=== PATIENT | female | born 1945 | race Caucasian/White ===

== ENCOUNTER → 2016-07-23 | Outpatient (CLI) | payer OTHER | LOC: BMCIMAGING 12:50 | PROVIDERS: ATTEND Internal Medicine | DX: R55 Syncope and collapse (principal); K44.9 Diaphragmatic hernia without obstruction or gangrene ==

== ENCOUNTER → 2016-08-05 | Outpatient (CLI) | payer OTHER | LOC: BMCIMAGING 08:06 | PROVIDERS: ATTEND Internal Medicine Endocrinology, Diabetes & Metabolism | DX: E04.1 Nontoxic single thyroid nodule (principal) | CPT/HCPCS: 76536-PO ==

== ENCOUNTER → 2016-09-03 | Outpatient (CLI) | payer OTHER | LOC: BMCIMAGING 07:59 | PROVIDERS: ATTEND Internal Medicine | DX: Z12.31 Encounter for screening mammogram for malignant neoplasm of breast (principal) | CPT/HCPCS: G0202 ==

== ENCOUNTER → 2016-09-29 | Outpatient (CLI) | payer OTHER | LOC: BMCIMAGING 11:20 | PROVIDERS: ATTEND Internal Medicine | DX: E21.3 Hyperparathyroidism, unspecified (principal); I25.10 Atherosclerotic heart disease of native coronary artery without angina pectoris; M85.80 Other specified disorders of bone density and structure, unspecified site ==

== ENCOUNTER 2017-01-14 06:19 | Observation (INO) | payer OTHER ==
[2017-01-14] MEDS ORDERED: KETOROLAC 15 MG/1 ML SDV IVP ONE (06:50)
--- NOTE | 2017-01-14 06:52 | EDPHY ---
H & P Stated Complaint: RUQ ABD PAIN SINCE 2 A.M. , NO N,V,D, Source: Patient Exam Limitations: No limitations - Personal History Current Tetanus/Diphtheria Vaccine: Yes Current Tetanus Diphtheria and Acellular Pertussis (TDAP): Yes - Medical/Surgical History Hx Asthma: No Hx Chronic Respiratory Disease: No Hx Diabetes: No Hx Cardiac Disease: No Hx Renal Disease: No Hx Cirrhosis: No Hx Alcoholism: No Hx HIV/AIDS: No Hx Splenectomy or Spleen Trauma: No Other PMH: pmh- hypothyroid, high cholesterol, htn. psh- R knee, tonsilectomy - Social History Smoking Status: Never smoked HPI/ROS: HPI The patient presents with right upper quadrant abdominal pain which has been present since about 1:45 a.m. this morning and awoke her from sleep. The pain is been constant ever since and is described as a soreness. When she pushes in the area it hurts. She has had no prior history of similar pain. This is moderate in severity. It is not associated with any nausea, vomiting, fever, dizziness or diaphoresis. She does not any chest pain. REVIEW OF SYSTEMS Constitutional: No fever, no chills. Eyes: No discharge. ENT: No sore throat. Cardiovascular: No chest pain, no palpitations. Respiratory: No cough, no shortness of breath. Gastrointestinal: Positive for abdominal pain, no vomiting. Genitourinary: No hematuria. Musculoskeletal: No back pain. Skin: No rashes. Neurological: No headache. PMHx: Hypothyroidism, hypercholesterolemia, hypertension, no prior history of abdominal operation Soc Hx: non smoker PHYSICAL General Appearance: Alert, no distress Eyes: Pupils equal and round no pallor or injection ENT, Mouth: Mucous membranes moist Respiratory: There are no retractions, lungs are clear to auscultation Cardiovascular: Regular rate and rhythm Gastrointestinal: Abdomen is soft with tenderness present in the right upper quadrant which is mild, no masses, bowel sounds normal Neurological: A&O, moves all extremities Skin: Warm and dry, no rashes Musculoskeletal: Neck is supple non tender Extremities: symmetrical, full range of motion Psychiatric: Patient is oriented X 3, there is no agitation (Riguzzi,Jess) Constitutional: Initial Vital Signs Temperature (C) 36.8 C 01/14/17 06:24 Heart Rate 63 01/14/17 06:24 Respiratory Rate 18 01/14/17 06:24 Blood Pressure 126/63 H 01/14/17 06:24 O2 Sat (%) 95 01/14/17 06:24 O2 Delivery Mode Room Air Allergies/Adverse Reactions: amoxicillin [Amoxicillin] Allergy (Verified 01/14/17 06:27) Rash blue dye [Blue Dye] Allergy (Verified 01/14/17 06:27) TACHYCARDIA, PALPITATIONS diphenhydramine HCl [From Benadryl] Allergy (Verified 01/14/17 06:27) Other-Enter Comments Home Medications: Medication Instructions Recorded Levothyroxine [Synthroid 75 mcg 05/10/11 (RX)] Atorvastatin Calcium [Lipitor 20 10 mg PO DAILY 01/14/17 mg (*)] Candesartan/Hydrochlorothiazid 1 each PO 01/14/17 [Candesartan-Hctz 16-12.5 mg Tb] Medical Decision Making ED Course/Re-evaluation: 730: The patient is signed out to me at change of shift by Dr. saha. 735: I discussed the case with Dr. Cornelius from Radiology. He reports that the patient has gallstones in the neck of the gallbladder. There is a dilated common bile duct 1 cm. There is sludge in the common bile duct. No wall thickening. I reviewed the patient's laboratory studies. Patient's white count is 7. LFTs are normal. Lipase is 170. I went and re-evaluated the patient. The patient still complaining of right upper quadrant tenderness palpation. On exam she appears well in no acute distress. She has no respiratory distress with clear breath sounds bilaterally. I see no rash. Patient has right upper quadrant tenderness to palpation with no rebound or guarding. I discussed all results with the patient and answered her questions. I feel the patient needs further evaluation based on her imaging and presentation. She agrees with admission. Hospitalist was paged. I discussed case with the hospitalist service. I also discussed the case with Dr. Campbell from surgery. Dr. Campbell will accept the patient to his service. He will come to the emergency department to evaluate the patient. Admission orders were placed. The patient is aware. (Florina Carranza) Differential Diagnosis: This is a 71-year-old female with hypertension, hypothyroidism who presents from home with about 5 hours of right upper quadrant abdominal pain which started spontaneously with no associated features. On exam, she is tender in the right upper quadrant without rebound or guarding. There is no rib tenderness. Differential diagnosis includes cholelithiasis, cholecystitis, less likely pleurisy, less likely varicella zoster. In the emergency department, basic lab testing was ordered, but upper quadrant ultrasound ordered. The patient was given Toradol for pain. At change of shift at approximately 7:00 a.m., the case is signed out to the oncoming provider Dr. Carranza pending reassessment and follow up on the patient' s studies. (Jess Saha) - Data Points Laboratory Results: Laboratory Results 01/14/17 06:47 01/14/17 06:47 01/14/17 01/14/17 06:47 06:47 WBC 7.83 10^3/uL 10^3/uL (3.80-9.50) RBC 4.74 10^6/uL 10^6/uL (4.18-5.33) Hgb 14.7 g/dL g/dL (12.6-16.3) Hct 40.9 % % (38.0-47.0) MCV 86.3 fL fL (81.5-99.8) MCH 31.0 pg pg (27.9-34.1) MCHC 35.9 g/dL g/dL (32.4-36.7) RDW 12.8 % % (11.5-15.2) Plt Count 242 10^3/uL 10^3/uL (150-400) MPV 8.4 fL L fL (8.7-11.7) Neut % (Auto) 80.4 % H % (39.3-74.2) Lymph % (Auto) 13.0 % L % (15.0-45.0) [place] % (Auto) 5.6 % % (4.5-13.0) Eos % (Auto) 0.3 % L % (0.6-7.6) Baso % (Auto) 0.4 % % (0.3-1.7) Nucleat RBC Rel Count 0.0 % % (0.0-0.2) Absolute Neuts (auto) 6.30 10^3/uL 10^3/uL (1.70-6.50) Absolute Lymphs (auto) 1.02 10^3/uL 10^3/uL (1.00-3.00) Absolute Monos (auto) 0.44 10^3/uL 10^3/uL (0.30-0.80) Absolute Eos (auto) 0.02 10^3/uL L 10^3/uL (0.03-0.40) Absolute Basos (auto) 0.03 10^3/uL 10^3/uL (0.02-0.10) Absolute Nucleated RBC 0.00 10^3/uL 10^3/uL (0-0.01) Immature Gran % 0.3 % % (0.0-1.1) Immature Gran # 0.02 10^3/uL 10^3/uL (0.00-0.10) Sodium 141 mEq/L mEq/L (134-144) Potassium 3.4 mEq/L L mEq/L (3.5-5.2) Chloride 103 mEq/L mEq/L (97-110) Carbon Dioxide 26 mEq/l mEq/l (22-31) Anion Gap 12 mEq/L mEq/L (8-16) BUN 17 mg/dL mg/dL (7-23) Creatinine 0.9 mg/dL mg/dL (0.6-1.0) Estimated GFR > 60 Glucose 118 mg/dL H mg/dL (70-100) Calcium 9.5 mg/dL mg/dL (8.5-10.4) Total Bilirubin 1.0 mg/dL mg/dL (0.1-1.4) Conjugated Bilirubin 0.0 mg/dL mg/dL (0.0-0.5) Unconjugated Bilirubin 1.0 mg/dL mg/dL (0.0-1.1) AST 29 IU/L IU/L (14-46) ALT 36 IU/L IU/L (9-52) Alkaline Phosphatase 98 IU/L IU/L (38-126) Total Protein 6.7 g/dL g/dL (6.3-8.2) Albumin 4.2 g/dL g/dL (3.5-5.0) Lipase 170 IU/L IU/L (23-300) Medications Given: Discontinued Medications Sodium Chloride (Ns) 1,000 mls @ 3,000 mls/hr IV ONCE ONE Stop: 01/14/17 07:43 Last Admin: 01/14/17 07:25 Dose: 1,000 mls Ketorolac Tromethamine (Toradol) 15 mg IVP EDNOW ONE Stop: 01/14/17 06:51 Last Admin: 01/14/17 07:24 Dose: 15 mg Departure - Departure Disposition: [facility] Inpatient Acute Clinical Impression: Right upper quadrant pain Condition: Good
[2017-01-14 07:04] LABS: % IMMATURE GRANULYOCYTES 0.3 % (0.0-1.1); ABSOLUTE IMMATURE GRANULOCYTES 0.02 10^3/uL (0.00-0.10); ADD DIFF? NO; ADD MORPH? NO; ADD SCAN? NO; ATYPICAL LYMPHOCYTE FLAG 0 (0-99); FRAGMENT RBC FLAG 0 (0-99); HEMATOCRIT 40.9 % (38.0-47.0); HEMOGLOBIN 14.7 g/dL (12.6-16.3); LEFT SHIFT FLG 0 (0-99); LIPEMIA HEMOLYSIS FLAG 90 (0-99); MEAN CELL HEMOGLOBIN CONCENTR. 35.9 g/dL (32.4-36.7); MEAN CELL VOLUME 86.3 fL (81.5-99.8); MEAN PLATELET VOLUME 8.4 fL (8.7-11.7); PLATELET CLUMPS FLAG 0 (0-99); PLATELET COUNT 242 10^3/uL (150-400); RED BLOOD CELL COUNT 4.74 10^6/uL (4.18-5.33); RED CELL DISTRIBUTION WIDTH 12.8 % (11.5-15.2)
[2017-01-14 07:20] LABS: ALANINE AMINOTRANSFERASE 36 IU/L (9-52); ALBUMIN 4.2 g/dL (3.5-5.0); ALKALINE PHOSPHATASE 98 IU/L (38-126); ASPARTATE AMINOTRANSFERASE 29 IU/L (14-46); CALCIUM 9.5 mg/dL (8.5-10.4); CARBON DIOXIDE 26 mEq/l (22-31); CHLORIDE 103 mEq/L (97-110); CREATININE 0.9 mg/dL (0.6-1.0); GLOMERULAR FILTRATION RATE > 60; GLUCOSE 118 mg/dL (70-100); SODIUM 141 mEq/L (134-144); TOTAL PROTEIN 6.7 g/dL (6.3-8.2)
[2017-01-14] MEDS ORDERED: NS 1,000 ML IV ONE (07:24)
[2017-01-14 07:29] LABS: ANION GAP 12 mEq/L (8-16); POTASSIUM 3.4 mEq/L (3.5-5.2)
[2017-01-14] MEDS ORDERED: ceFAZolin 2 GM/SWFI 2 GM/20 ML SYR IVP ONE (08:46)
[2017-01-14] MEDS ORDERED: ATORVASTATIN CALCIUM 20 MG TAB PO SCH (09:00)
[2017-01-14] MEDS ORDERED: ATORVASTATIN CALCIUM 10 MG TAB PO SCH ×2 (09:00→16:30)
--- NOTE | 2017-01-14 09:43 | PDGENHP ---
History and Physical - Chief Complaint Abd Pain - History of Present Illness Frances presented with acute abdominal pain this morning. Pain is RUQ without radiation/Dr. Skinner ordered an ultrasound which showed a dilated GB with a stone lodged in the neck. She received 15 mg of Toradol in the ED and felt a little better. Surgical consult was requested. History Information - Allergies/Home Medication List Allergies/Adverse Reactions: amoxicillin [Amoxicillin] Allergy (Verified 01/14/17 06:27) Rash blue dye [Blue Dye] Allergy (Verified 01/14/17 06:27) TACHYCARDIA, PALPITATIONS diphenhydramine HCl [From Benadryl] Allergy (Verified 01/14/17 06:27) Other-Enter Comments Home Medications: Levothyroxine [Synthroid 75 mcg (RX)] 75 mcg PO DAILY 05/10/11 [Last Taken 01/13] Atorvastatin Calcium [Lipitor 10 mg (*)] 10 mg PO DAILY 01/14/17 [Last Taken ] Candesartan/Hydrochlorothiazid [Candesartan-Hctz 16-12.5 mg Tb] 1 each PO DAILY 01/14/17 [Last Taken 01/13/17] I have personally reviewed and updated: family history, medical history, social history (lives alone), surgical history - Past Medical History hypertension, hyperlipidemia Additional medical history: hypothyroidism - Surgical History Additional surgical history: hysteroscopy/knee arthroscopy - Family History Positive for: non-pertinent - Social History Smoking Status: Never smoked Alcohol Use: Rarely Drug Use: None 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 Review of Systems Review of Systems: Cardiac: Reports: no symptoms Respiratory: Reports: no symptoms Gastrointestinal: Reports: abdominal pain, diarrhea, nausea Genitourinary: Reports: no symptoms Muscolosketal: Reports: no symptoms Neurological: Reports: no symptoms Physical Exam Physical Exam: Temp Pulse Resp BP Pulse Ox 37 C 87 16 153/80 H 94 01/14/17 09:12 01/14/17 09:12 01/14/17 09:12 01/14/17 09:12 01/14/17 09:12 Constitutional: uncomfortable Eyes: PERRL, anicteric sclera Cardiovascular: regular rate and rhythym, no murmur, rub, or gallop Respiratory: no respiratory distress, no rales or rhonchi, clear to auscultation Gastrointestinal: other (hypoactive bowel sounds/tender RUQ with mild guarding/ - Salgado's) Skin: warm Musculoskeletal: no joint effusions Neurologic: AAOx3 Psychiatric: interacting appropriately, not anxious Lab Data & Imaging Review 01/14/17 06:47 01/14/17 06:47 WBC 7.83 10^3/uL (3.80-9.50) 01/14/17 06:47 RBC 4.74 10^6/uL (4.18-5.33) 01/14/17 06:47 Hgb 14.7 g/dL (12.6-16.3) 01/14/17 06:47 Hct 40.9 % (38.0-47.0) 01/14/17 06:47 MCV 86.3 fL (81.5-99.8) 01/14/17 06:47 MCH 31.0 pg (27.9-34.1) 01/14/17 06:47 MCHC 35.9 g/dL (32.4-36.7) 01/14/17 06:47 RDW 12.8 % (11.5-15.2) 01/14/17 06:47 Plt Count 242 10^3/uL (150-400) 01/14/17 06:47 MPV 8.4 fL (8.7-11.7) L 01/14/17 06:47 Neut % (Auto) 80.4 % (39.3-74.2) H 01/14/17 06:47 Lymph % (Auto) 13.0 % (15.0-45.0) L 01/14/17 06:47 [place] % (Auto) 5.6 % (4.5-13.0) 01/14/17 06:47 Eos % (Auto) 0.3 % (0.6-7.6) L 01/14/17 06:47 Baso % (Auto) 0.4 % (0.3-1.7) 01/14/17 06:47 Nucleat RBC Rel Count 0.0 % (0.0-0.2) 01/14/17 06:47 Absolute Neuts (auto) 6.30 10^3/uL (1.70-6.50) 01/14/17 06:47 Absolute Lymphs (auto) 1.02 10^3/uL (1.00-3.00) 01/14/17 06:47 Absolute Monos (auto) 0.44 10^3/uL (0.30-0.80) 01/14/17 06:47 Absolute Eos (auto) 0.02 10^3/uL (0.03-0.40) L 01/14/17 06:47 Absolute Basos (auto) 0.03 10^3/uL (0.02-0.10) 01/14/17 06:47 Absolute Nucleated RBC 0.00 10^3/uL (0-0.01) 01/14/17 06:47 Immature Gran % 0.3 % (0.0-1.1) 01/14/17 06:47 Immature Gran # 0.02 10^3/uL (0.00-0.10) 01/14/17 06:47 Sodium 141 mEq/L (134-144) 01/14/17 06:47 Potassium 3.4 mEq/L (3.5-5.2) L 01/14/17 06:47 Chloride 103 mEq/L (97-110) 01/14/17 06:47 Carbon Dioxide 26 mEq/l (22-31) 01/14/17 06:47 Anion Gap 12 mEq/L (8-16) 01/14/17 06:47 BUN 17 mg/dL (7-23) 01/14/17 06:47 Creatinine 0.9 mg/dL (0.6-1.0) 01/14/17 06:47 Estimated GFR > 60 01/14/17 06:47 Glucose 118 mg/dL (70-100) H 01/14/17 06:47 Calcium 9.5 mg/dL (8.5-10.4) 01/14/17 06:47 Total Bilirubin 1.0 mg/dL (0.1-1.4) 01/14/17 06:47 Conjugated Bilirubin 0.0 mg/dL (0.0-0.5) 01/14/17 06:47 Unconjugated Bilirubin 1.0 mg/dL (0.0-1.1) 01/14/17 06:47 AST 29 IU/L (14-46) 01/14/17 06:47 ALT 36 IU/L (9-52) 01/14/17 06:47 Alkaline Phosphatase 98 IU/L (38-126) 01/14/17 06:47 Total Protein 6.7 g/dL (6.3-8.2) 01/14/17 06:47 Albumin 4.2 g/dL (3.5-5.0) 01/14/17 06:47 Lipase 170 IU/L (23-300) 01/14/17 06:47 LFTs and lipase WNL Visualized and Interpreted imaging results: Yes Interpretation: ultrasound 76 images reviewed/dilated GB with stone impacted into the infundibulum. CBD upper limits of normal without filling defects Assessment & Plan Assessment: gallstones/cystic duct obstruction mild hypertension hyperlipidemia Right upper quadrant pain (Acute) Plan: I recommended lap saray with cholangiography. We discussed the procedure, risks and expected recovery. Informed consent was obtained. Ancef 2 gm IVPB pre-op + SCDs ordered admit for observation post op as patient lives alone
[2017-01-14] MEDS ORDERED: BUPIVACAINE 0.25% 30 ML SDV ONE (09:44)
[2017-01-14] MEDS ORDERED: IOPAMIDOL (ISOVUE-M 300) 15 ML VIAL ONE (09:44)
[2017-01-14] MEDS ORDERED: LR 1,000 ML IV ONE (09:53)
[2017-01-14] MEDS ORDERED: MIDAZOLAM 2 MG/2 ML VIAL IVP ONE (09:55)
--- NOTE | 2017-01-14 09:55 | PDANEPAE ---
ANE Past Medical History - Cardiovascular History Hx Hypertension: Yes Hx Arrhythmias: No Hx Chest Pain: No Hx Coronary Artery / Peripheral Vascular Disease: No Hx CHF / Valvular Disease: No Hx Palpitations: No Cardiovascular History Comment: high chol. pcp monitors bp meds - Pulmonary History Hx COPD: No Hx Asthma/Reactive Airway Disease: No Hx Recent Upper Respiratory Infection: No Hx Oxygen in Use at Home: No Hx Sleep Apnea: No Pulmonary History Comment: dry cough currently has had cxr and will f/u with car jockey - Neurologic History Hx Cerebrovascular Accident: No Hx Seizures: No Hx Dementia: No - Endocrine History Hx Diabetes: No Endocrine History Comment: hypothyroidism - Renal History Hx Renal Disorders: No - Liver History Hx Hepatic Disorders: No - Neurological & Psychiatric Hx Hx Neurological and Psychiatric Disorders: No - Cancer History Hx Cancer: Yes Cancer History Comment: basal cell only - Congenital Disorder History Hx Congenital Disorders: No - GI History Hx Gastrointestinal Disorders: Yes Gastrointestinal History Comment: reflux - Other Health History Other Health History: none - Chronic Pain History Chronic Pain: No - Surgical History Prior Surgeries: hx of colonoscopies last 08/2014. right knee scope 2005 ANE Review of Systems Review of Systems: ANE Patient History - Allergies Allergies/Adverse Reactions: amoxicillin [Amoxicillin] Allergy (Verified 01/14/17 06:27) Rash blue dye [Blue Dye] Allergy (Verified 01/14/17 06:27) TACHYCARDIA, PALPITATIONS diphenhydramine HCl [From Benadryl] Allergy (Verified 01/14/17 06:27) Other-Enter Comments - Home Medications Home Medications: Levothyroxine [Synthroid 75 mcg (RX)] 75 mcg PO DAILY 05/10/11 [Last Taken 01/13] Atorvastatin Calcium [Lipitor 10 mg (*)] 10 mg PO DAILY 01/14/17 [Last Taken ] Candesartan/Hydrochlorothiazid [Candesartan-Hctz 16-12.5 mg Tb] 1 each PO DAILY 01/14/17 [Last Taken 01/13/17] - NPO status NPO Since - Liquids (Date): 01/14/17 NPO Since - Liquids (Time): 02:00 NPO Since - Solids (Date): 01/13/17 NPO Since - Solids (Time): 20:00 - Smoking Hx Smoking Status: Never smoked - Alcohol Use Alcohol Use: Rarely - Family Anes Hx Family Hx Anesthesia Complications: none ANE Labs/Vital Signs - Labs Result Diagrams: 01/14/17 06:47 01/14/17 06:47 - Vital Signs Blood Pressure: 153/80 Heart Rate: 87 Respiratory Rate: 16 O2 Sat (%): 94 Height: 162.56 cm Weight: 68.039 kg ANE Physical Exam - Airway Mallampati Score: Class 3 Mouth exam: normal dental/mouth exam - Pulmonary Pulmonary: no respiratory distress, no rales or rhonchi - Cardiovascular Cardiovascular: regular rate and rhythym - ASA Status ASA Status: III (acute cholecystitis pain crisis last night)
[2017-01-14] MEDS ORDERED: MIDAZOLAM 2 MG/2 ML VIAL ONE ×2 (09:58→10:10)
[2017-01-14] MEDS ORDERED: PROPOFOL/EMULSION 500 MG/50 ML BOTTLE IV ONE ×2 (10:10→13:38)
[2017-01-14] MEDS ORDERED: fentaNYL 100 MCG/2 ML INJ ONE ×2 (10:10→13:38)
[2017-01-14] MEDS ORDERED: METOCLOPRAMIDE 10 MG/2 ML VIAL IVP PRN ×2 (11:51→14:42)
[2017-01-14] MEDS ORDERED: fentaNYL 100 MCG/2 ML INJ IVP PRN ×2 (11:51→14:42)
[2017-01-14] MEDS ORDERED: NALOXONE HCL 0.4 MG/ML INJ IVP PRN ×2 (11:51→14:42)
[2017-01-14] MEDS ORDERED: ONDANSETRON 4 MG/2 ML VIAL IVP PRN ×3 (11:51→14:42)
--- NOTE | 2017-01-14 11:53 | POSTANESTH ---
Post Anesthetic Evaluation Cardiovascular Status: Similar to Pre-Op Cond Respiratory Status: Normal, Stable Level of Consciousness/Mental Status: Can Participate in Eval Pain Control: Adequate, Prn Tx Ordered Nausea/Vomiting Control: Adequate, Prn Tx Ordered Complications Possibly Related to Anesthesia: None Noted
--- NOTE | 2017-01-14 11:56 | POSTOPPROG ---
Post Op Note Date of Operation: 01/14/17 Surgeon: Nael Campbell (, FACS) Anesthesiologist: Jaspreet Inman Anesthesia: GET(General Endotracheal) Pre-op Diagnosis: cholelithiasis Post-op Diagnosis: same + choledocholithiasis Procedure: lap saray with cholangiography Findings: dilated CBD with partial distal obstruction/CBD stones Inf/Abcess present in the surg proc area at time of surgery?: No EBL: Minimal (10 ml) Complications: none Specimen(s): gallbladder
[2017-01-14] MEDS ORDERED: LR 1,000 ML IV SCH (12:00)
[2017-01-14] MEDS ORDERED: IOTHALAMATE MEG (CONRAY) 50 ML VIAL IV ONE (12:23)
[2017-01-14] MEDS ORDERED: GLUCAGON HCL 1 MG VIAL ONE (12:23)
--- NOTE | 2017-01-14 13:29 | PDANEPAE ---
ANE History of Present Illness s/p lap saray, now s/f ERCP for duct stones. ANE Past Medical History - Cardiovascular History Hx Hypertension: Yes Hx Arrhythmias: No Hx Chest Pain: No Hx Coronary Artery / Peripheral Vascular Disease: No Hx CHF / Valvular Disease: No Hx Palpitations: No Cardiovascular History Comment: high chol. pcp monitors bp meds - Pulmonary History Hx COPD: No Hx Asthma/Reactive Airway Disease: No Hx Recent Upper Respiratory Infection: No Hx Oxygen in Use at Home: No Hx Sleep Apnea: No Pulmonary History Comment: dry cough currently has had cxr and will f/u with care partner - Neurologic History Hx Cerebrovascular Accident: No Hx Seizures: No Hx Dementia: No - Endocrine History Hx Diabetes: No Endocrine History Comment: hypothyroidism - Renal History Hx Renal Disorders: No - Liver History Hx Hepatic Disorders: No - Neurological & Psychiatric Hx Hx Neurological and Psychiatric Disorders: No - Cancer History Hx Cancer: Yes Cancer History Comment: basal cell only - Congenital Disorder History Hx Congenital Disorders: No - GI History Hx Gastrointestinal Disorders: Yes Gastrointestinal History Comment: reflux - Other Health History Other Health History: none - Chronic Pain History Chronic Pain: No - Surgical History Prior Surgeries: hx of colonoscopies last 08/2014. right knee scope 2005 ANE Review of Systems Review of Systems: - Exercise capacity Exercise capacity: >=4 METS ANE Patient History - Allergies Allergies/Adverse Reactions: amoxicillin [Amoxicillin] Allergy (Verified 01/14/17 06:27) Rash blue dye [Blue Dye] Allergy (Verified 01/14/17 06:27) TACHYCARDIA, PALPITATIONS diphenhydramine HCl [From Benadryl] Allergy (Verified 01/14/17 06:27) Other-Enter Comments - Home Medications Home Medications: Levothyroxine [Synthroid 75 mcg (RX)] 75 mcg PO DAILY 05/10/11 [Last Taken 01/13] Atorvastatin Calcium [Lipitor 10 mg (*)] 10 mg PO DAILY 01/14/17 [Last Taken ] Candesartan/Hydrochlorothiazid [Candesartan-Hctz 16-12.5 mg Tb] 1 each PO DAILY 01/14/17 [Last Taken 01/13/17] - NPO status NPO Since - Liquids (Date): 01/14/17 NPO Since - Liquids (Time): 02:00 NPO Since - Solids (Date): 01/13/17 NPO Since - Solids (Time): 20:00 - Anes Hx Anes Hx: no prior problems (no problems with GA earlier today) - Smoking Hx Smoking Status: Never smoked - Alcohol Use Alcohol Use: Rarely - Family Anes Hx Family Hx Anesthesia Complications: none ANE Labs/Vital Signs - Labs Result Diagrams: 01/14/17 06:47 01/14/17 06:47 - Vital Signs Blood Pressure: 118/73 Heart Rate: 76 Respiratory Rate: 16 O2 Sat (%): 93 Height: 162.56 cm Weight: 68.039 kg ANE Physical Exam - Airway Neck exam: FROM Mallampati Score: Class 2 Mouth exam: normal dental/mouth exam - Pulmonary Pulmonary: rhonchi (very mild, O2 sats are good) - Cardiovascular Cardiovascular: regular rate and rhythym ANE Anesthesia Plan Anesthesia Plan: general endotracheal anesthesia (ez intubation earlier)
[2017-01-14] MEDS ORDERED: REMIFENTANIL HCL 1 MG VIAL ONE (13:38)
[2017-01-14] MEDS ORDERED: ONDANSETRON 4 MG/2 ML VIAL ONE (13:41)
[2017-01-14] MEDS ORDERED: LIDOCAINE 2% 100 MG/5 ML SYR ONE (13:41)
[2017-01-14] MEDS ORDERED: DEXAMETHASONE 4 MG/ML VIAL ONE (13:41)
[2017-01-14] MEDS ORDERED: epHEDrine SULFATE 10 MG/ML SYR ONE ×2 (13:56)
[2017-01-14] MEDS ORDERED: PHENYLEPHRINE HCL 100 MCG/ML SYR ONE (14:03)
[2017-01-14] MEDS ORDERED: INDOMETHACIN 50 MG SUPP PR ONE ×3 (14:11→14:31)
--- NOTE | 2017-01-14 14:22 | POSTOPPROG ---
Post Op Note Date of Operation: 01/14/17 Surgeon: Ollie De Souza Anesthesia: GET(General Endotracheal) Pre-op Diagnosis: CBD obstruction Post-op Diagnosis: same Indication: same Procedure: ERCP/sphincterotomy Findings: No significant CBD debris Inf/Abcess present in the surg proc area at time of surgery?: No
--- NOTE | 2017-01-14 14:30 | GIREPORT ---
[facility] - Endoscopy Department Patient Name: Frances Bran Procedure Date: 01/14/2017 1:13 PM Patient Type: Inpatient Attending MD/ ER Physician: Ollie De Souza MD Procedure: ERCP Indications: Suspected bile duct stone(s) Providers: Ollie De Souza MD Medicines: General Anesthesia Complications: No immediate complications. Description of Procedure: After obtaining informed consent, the scope was passed under direct vis ion. Throughout the procedure, the patient's blood pressure, pulse, and oxyg en saturations were monitored continuously. The Duodenalscope was introduc ed through the mouth, and advanced to the duodenum and used to inject cont rast into the bile duct. The ERCP was accomplished with ease. The patient tolerated the procedure well. Findings: The scope was advanced to a normal major papilla in the descending duod enum. Examination of the pharynx, larynx and associated structures, and upper GI tract was normal. The bile duct was deeply cannulated with the short-no sed traction sphincterotome. Contrast was injected. I personally interprete d the bile duct images. There was brisk flow of contrast through the ducts. I mage quality was excellent. Contrast extended to the bifurcation. The entire opacified area, main bile duct and common bile duct were diffusely dila clotilde. The largest diameter was 15 mm. No filling defects were seen in the shira iary tree. A 12 mm biliary sphincterotomy was made with a traction (standard ) sphincterotome using ERBE electrocautery. There was no post-sphincterot isabelle bleeding. To discover objects, the biliary tree was swept three times w ith a 15 mm balloon starting at the bifurcation. Nothing was found. Estimated Blood Loss: Estimated blood loss: none. Post Op Diagnosis: - The entire main bile duct and common bile duct were dilated. - A biliary sphincterotomy was performed. - The biliary tree was swept and nothing was found. Recommendation: - Admit the patient to hospital [facility] for observation. Attending Participation: I personally performed the entire procedure. Ollie De Souza MD Ollie De Souza MD 01/14/2017 2:29:49 PM This report has been signed electronicallyRobert MD Nolvia Number of Addenda: 0 Note Initiated On: 01/14/2017 1:13 PM [email or web address]
[2017-01-14] MEDS ORDERED: ALBUTEROL 3 ML DEYVIAL IH PRN (14:42)
[2017-01-14] MEDS ORDERED: DEXAMETHASONE 4 MG/ML VIAL IVP PRN (14:42)
[2017-01-14] MEDS ORDERED: LABETALOL HCL 5 MG/ML 20 ML MDV IVP PRN (14:42)
[2017-01-14] MEDS ORDERED: MEPERIDINE 25 MG/ML SYR IVP PRN (14:42)
[2017-01-14] MEDS ORDERED: ACETAMINOPHEN 500 MG TAB PO PRN (14:42)
[2017-01-14] MEDS ORDERED: OXYCODONE/APAP 5/325 TAB PO PRN (14:42)
[2017-01-14] MEDS ORDERED: PROMETHAZINE HCL 25 MG/ML INJ IVP PRN (14:42)
[2017-01-14] MEDS ORDERED: LR 500 ML IV PRN (14:42)
[2017-01-14] MEDS ORDERED: HYDROCODONE/APAP 5/325 TAB PO PRN (14:42)
--- NOTE | 2017-01-14 14:44 | POSTANESTH ---
Post Anesthetic Evaluation Cardiovascular Status: Normal, Stable Respiratory Status: Normal, Stable Level of Consciousness/Mental Status: Can Participate in Eval Pain Control: Adequate, Prn Tx Ordered Nausea/Vomiting Control: Adequate, Prn Tx Ordered Complications Possibly Related to Anesthesia: None Noted
[2017-01-14] MEDS ORDERED: CANDESARTAN PO SCH (16:45)
[2017-01-14] MEDS ORDERED: LEVOTHYROXINE 75 MCG TAB PO SCH (16:45)
[2017-01-14] MEDS ORDERED: HYDROCHLOROTHIAZID PO SCH (16:45)
[2017-01-14] MEDS ORDERED: traMADol 50 MG TAB PO PRN (17:35)
--- NOTE | 2017-01-14 17:35 | SOAPPROG ---
Downtime Inpatient MD Late Entry SOAP Note: Frances is resting comfortably with mild incisional pain. She denies nausea, but has not had much in orally yet. Her lungs are clear and her abdominal incisions appear uncomplicated. We discussed the finding at surgery and ERCP and reviewed her images. I anticipate she will be able to discharge in the morning if she tolerates her diet advance
[2017-01-14] MEDS: ACETAMINOPHEN 500 MG TAB PO SCH ×2 (18:16→21:57)
--- NOTE | 2017-01-14 22:52 | GOP ---
[f rep st] OPERATIVE REPORT DATE OF OPERATION: 01/14/2017 SURGEON: Nael Campbell MD, FACS ANESTHESIA: General endotracheal. ANESTHESIOLOGIST: Jaspreet Inman MD PREOPERATIVE DIAGNOSIS: 1. Cholelithiasis with cystic duct obstruction. POSTOPERATIVE DIAGNOSIS: Acute and chronic cholecystitis with cystic duct obstruction and choledocholithiasis with incomplete obstruction of the distal common bile duct. PROCEDURE PERFORMED: Laparoscopic cholecystectomy with operative cholangiography. FINDINGS: Markedly dilated gallbladder with subacute and chronic obstruction of the gallbladder. Intraoperative cholangiogram showing high-grade distal obstruction at the ampulla with residual ductal filling defects consistent with choledocholithiasis. Normal-appearing liver. ESTIMATED BLOOD LOSS: 10 cc. DESCRIPTION OF PROCEDURE: After informed consent was obtained, the patient was brought to the operating room and placed under general anesthesia. The abdomen was prepped with chlorhexidine and draped in the usual sterile fashion. Before proceeding, a time-out and identification of the patient was performed. 0.25% Marcaine was used to infiltrate all incision sites. A transverse incision was made below the umbilicus and carried through the skin and subcutaneous tissues. Dissection was carried down to the midline fascia. Ventral traction was applied to the abdominal wall with a penetrating towel clamps and a Veress needle was introduced into the peritoneal cavity. Position was confirmed by saline infusion. A pneumoperitoneum was established with CO2 gas to a pressure of 15 mmHg. The Veress needle was withdrawn and replaced with a 12 mm bladeless trocar. A 5 mm 30-degree scope was introduced and the peritoneal cavity was visualized. Additional 5 mm ports were placed in the subxiphoid position to the right of the falciform ligament, in the right upper quadrant mid clavicular line and right upper quadrant anterior axillary line. This allowed introduction of atraumatic grasping forceps. The gallbladder was markedly distended and could not be easily grasped. It was decompressed with an endoscopic needle and approximately 20 cc of clear light green bilious stained mucus was aspirated. This was consistent with a subacute obstruction, more typical of a hydrops of the gallbladder. The gallbladder wall was edematous and thickened. The gallbladder fundus was then grasped and reflected cephalad, elevating the liver edge. The infundibulum was identified and grasped with an atraumatic forceps and manipulated anteriorly and posteriorly as the peritoneum was dissected away from the cystic duct circumferentially. The cystic artery presented posteriorly and this was dispatched with a Harmonic Scalpel. After the cystic duct had been clearly identified circumferentially where it had joined the gallbladder, it was hemoclipped, incised, and a Taut cholangiogram catheter introduced through a 14-gauge Angiocath and into the cystic ductotomy. This was secured with a hemoclip, flushed with saline solution, and subsequently cholangiograms were obtained with full-strength Isovue which showed a distal filling defect and minimal flow into the duodenum through the ampulla. The cholangiogram catheter was withdrawn after pictures were obtained and the duct was triply hemoclipped and divided. The gallbladder was then dissected away from the liver edge using the Harmonic Scalpel with minimal bleeding. It was retrieved through the umbilical port site and submitted for permanent section. Hemostasis appeared secure. The perihepatic space was irrigated and aspirated. The umbilical fascial defect was repaired with a transfascial closure needle and 0 Vicryl suture. The pneumoperitoneum was evacuated with suction. The remaining ports were removed. The subcutaneous tissues of the umbilical incision were closed with 3-0 Monocryl suture. All incisions were closed with 4-0 Monocryl suture in a subcuticular fashion. Mastisol and Steri-Strips were applied. Needle, sponge, and instrument count were correct. COMPLICATIONS: None. Postoperatively, GI will be consulted for consideration of ERCP. /[id number]/MODL MTDD
[2017-01-14 23:49] VITALS: RESP 16
[2017-01-15 02:53] VITALS: BP 120/69; PULSE 83; TEMP 98.7; O2SAT 93
[2017-01-15] MEDS: ACETAMINOPHEN 500 MG TAB PO SCH (02:54)
--- NOTE | 2017-01-15 06:25 | PDDCSUM ---
Discharge Summary Discharge Summary: #[id number] Dictated Fern Campbell MD, FACS
--- NOTE | 2017-01-15 11:34 | ASDISCHSUM ---
Discharge Information Plan Status:Home with No Needs Medically Cleared to Leave:01/14/2017 Discharge Date:01/15/2017 08:14 AM CM D/C Disposition: ADT D/C Disposition:Home, Routine, Self-Care Projected Discharge Date:01/15/2017 12:00 AM Transportation at D/C: Discharge Delay Reason: Follow-Up Date:01/15/2017 12:00 AM Discharge Slot: Final Diagnosis: Placement Information Patient Contact Information Contact Name:JING Relationship:Son Address:[address] City:[place] Alternate Phone: State/Zip Code:[place] [address] Email: Financial Information Financial Class: Primary Plan Desc:MEDICARE OUTPATIENT Primary Plan Number:[id number] Secondary Plan Desc:[employer] PPO Secondary Plan Number:[id number] Assessment Information LACE LACE Acuity / Level of Care Answers: Was the patient admitted to hospital via the emergency department? Yes: Emergency dept visits in Answers: 1 last 6 months Score: 4 Date Signed: 01/14/2017 09:45 AM Electronically Signed By:Gardenia Ambrocio RN Intervention Information
--- NOTE | 2017-01-15 12:20 | GDS ---
[f rep st] DISCHARGE SUMMARY DISCHARGE DIAGNOSES: 1. Cholelithiasis and choledocholithiasis. 2. Hypertension. 3. Hypothyroidism. PROCEDURE PERFORMED: 1. Laparoscopic cholecystectomy with operative cholangiogram. 2. ERCP, Dr. Alex De Souza. HOSPITAL COURSE: For details of admission history and physical, please see dictated summary. Briefly, the patient is a 71-year-old female who presented with abdominal pain to the emergency room, and was found to have cholelithiasis with dilated common bile duct. Patient's liver enzymes were no rmal. She was brought to the operating room for laparoscopic cholecystectomy and operative cholangio graphy which revealed a markedly dilated common bile duct with a distal partial obstruction. The gal lbladder was markedly dilated and chronically obstructed with evidence of hydrops. Following cholecy stectomy, the patient underwent ERCP by Dr. Alex De Souza with sphincterotomy. There was no obvious sto ne within the common bile duct despite the imaging appearance. She was postoperatively admitted for observation as she lives alone. She had advancement of her diet without difficulty. She had no emes is. She required 1 dose of morphine 2 mg the evening after surgery, and subsequently took only Tylen ol for pain. The following morning after surgery she was afebrile, ambulatory. Her incision is heal ing well without sign of infection. She was discharged home to continue recovery there. DISCHARGE MEDICATIONS: Tylenol 500 mg q.6 hours p.r.n. pain, Lipitor 10 mg p.o. q. day, candesartan and hydrochlorothiazide 16/12.5 one p.o. q. day, levothyroxine 75 mcg p.o. q. day. FOLLOW UP: The patient will call my office for followup within the next week or 2. /[id number]/MODL
== END 2017-01-15 08:14 | disposition home or self-care (01) ==
LOC: F3E 15:39
PROVIDERS: ADMIT Surgery; ATTEND Surgery
PROC: 0FT44ZZ Resection of Gallbladder, Percutaneous Endoscopic Approach (ICD-10-PCS; principal; 2017-01-14 10:00)
PROC: BF131ZZ Fluoroscopy of Gallbladder and Bile Ducts using Low Osmolar Contrast (ICD-10-PCS; 2017-01-14 10:00)
DX: K80.67 Calculus of gallbladder and bile duct with acute and chronic cholecystitis with obstruction (principal); E03.9 Hypothyroidism, unspecified; E78.00 Pure hypercholesterolemia, unspecified; I10 Essential (primary) hypertension
CPT/HCPCS: 43262; 47563; 76001; 76705; 88304; 96361; 96374; 96375; 99285; G0378; J0690; J1100; J1885; J2001; J2250; J2370; J2405; J2704; J3010; Q9961; J1610; Q9967

== ENCOUNTER → 2017-08-20 | Outpatient (CLI) | payer OTHER | LOC: BMCIMAGING 10:15 | PROVIDERS: ATTEND Physician Assistant | DX: M17.12 Unilateral primary osteoarthritis, left knee (principal); M25.462 Effusion, left knee ==

== ENCOUNTER → 2018-06-18 | Outpatient (CLI) | payer OTHER | LOC: BMCIMAGING 15:26 | PROVIDERS: ATTEND Physician Assistant | DX: M17.0 Bilateral primary osteoarthritis of knee (principal) ==

== ENCOUNTER → 2018-06-28 | Outpatient (CLI) | payer OTHER | LOC: BMCIMAGING 10:04 | PROVIDERS: ATTEND Podiatrist Foot & Ankle Surgery | DX: M79.672 Pain in left foot (principal); M79.671 Pain in right foot; M20.11 Hallux valgus (acquired), right foot; M20.12 Hallux valgus (acquired), left foot ==

== ENCOUNTER → 2018-07-05 | Outpatient (CLI) | payer OTHER | LOC: BMCIMAGING 10:51 | PROVIDERS: ATTEND Podiatrist Foot & Ankle Surgery | DX: M79.672 Pain in left foot (principal); M25.572 Pain in left ankle and joints of left foot; M20.12 Hallux valgus (acquired), left foot; M19.072 Primary osteoarthritis, left ankle and foot; M77.32 Calcaneal spur, left foot ==

== ENCOUNTER → 2018-08-16 | Outpatient (CLI) | payer OTHER | LOC: BMCIMAGING 14:47 ==